=== PATIENT | female | born 1960 | race Caucasian/White ===

== ENCOUNTER 2024-05-29 11:59 | Emergency (ER) | payer OTHER, SELFPAY ==
[2024-05-29] VITALS (12 sets, daily range): BP systolic 144–168; BP diastolic 71–100; PULSE 60–76; TEMP 36.8; O2SAT 94–100; BMI 20.2
--- NOTE | 2024-05-29 12:07 | ECG_ITS ---
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
--- NOTE | 2024-05-29 12:07 | XR_ITS ---
[address] [address] Patient Name: ARA PEREZ MRN: [id number] date: 1960 Sex: F Assigned Patient Location: ER Current Patient Location: ED.MAIN Accession/Order Number: [id number] Exam Date: 05/29/2024 12:37 Report Date: 05/29/2024 12:55 At the request of: OLIVE MCKEON Procedure: XR chest 1V EXAMINATION: XR chest 1V HISTORY: sob COMPARISON: No relevant comparison available. TECHNIQUE: AP portable FINDINGS: LUNGS: No significant pulmonary parenchymal abnormalities. VASCULATURE: No increased pulmonary vasculature. PLEURA: No pneumothorax, effusion, or pleural thickening. CARDIAC: No cardiomegaly or cardiac silhouette abnormality. MEDIASTINUM: No visible mass or adenopathy. BONES: No fracture or visible bone lesion. Suspected L1 kyphoplasty OTHER: Negative. XR/XR chest 1V IMPRESSION: No acute cardiopulmonary process Electronically authenticated by: LYNNETTE DE LA CRUZ Date: 05/29/2024 12:55
[2024-05-29] MEDS: IPRATROPIUM/ALBUTEROL SULFATE 3 ML AMPUL.NEB IH (12:16)
[2024-05-29 12:22] LABS: Basophils Absolute Auto 0.1 10^3/uL (0.0-0.1); Basophils Percent Auto 1.2 % (0.2-2.0); Eosinophils Absolute Auto 0.2 10^3/uL (0.0-0.7); Eosinophils Percent Auto 4.8 % (0.9-7.0); Hemoglobin 14.2 g/dL (12.0-16.0); Immature Granulocytes Abs Auto 0.01 10^3/uL (0.00-0.03); Immature Granulocytes Pct Auto 0.2 % (0.0-0.5); Lymphocytes Absolute Auto 2.8 10^3/uL (1.2-3.8); Lymphocytes Percent Auto 56.4 % (20.5-60.0); Mean Corpuscular HGB Conc 35.5 g/dL (29.9-35.2); Mean Corpuscular Hemoglobin 31.3 pg (26.7-34.0); Mean Corpuscular Volume 88.3 fL (81.0-99.0); Mean Platelet Volume 9.8 fL (9.5-13.5); Monocytes Absolute Auto 0.3 10^3/uL (0.3-0.8); Monocytes Percent Auto 6.1 % (1.7-12.0); Neutrophils Absolute Auto 1.6 10^3/uL (1.4-6.5); Neutrophils Percent Auto 31.3 % (43.0-75.0); Platelet Count 244 10^3/uL (150-450); Red Blood Count 4.53 10^6/uL (4.20-5.40); Red Cell Distribution Width 12.8 % (11.0-15.0)
[2024-05-29 12:39] LABS: Alanine Aminotransferase 20 U/L (14-59); Albumin Globulin Ratio 1.3; Albumin Level 4.5 g/dL (3.4-5.0); Alkaline Phosphatase 91 U/L (46-116); Anion Gap 15.8; Aspartate Amino Transferase 15 U/L (15-37); BUN Creatinine Ratio 5.9; Bilirubin Total 0.6 mg/dL (0.2-1.0); Calcium 9.9 mg/dL (8.5-10.1); Chloride 99 mmol/L (98-107); Estimated GFR (African America >60 (>=60); Estimated GFR (Non-African Ame >60 (>=60); Globulin 3.5 g/dL; Glucose 103 mg/dL (74-106); Potassium 3.8 mmol/L (3.5-5.1); Sodium 134 mmol/L (136-145)
[2024-05-29 12:40] LABS: ABG PCO2 25.3 mmHg (35.0-45.0); PO2 ABG 76.2 mmHg (80.0-100.0); pH ABG 7.487 (7.350-7.450)
[2024-05-29 12:41] LABS: Allen Test POS (POSITIVE); Base Excess ABG -4.3 mmol/L (-2.0-2.0); HCO3 ABG 19.1 mmol/L (22.0-26.0); O2 Mode ROOM AIR; Oxygen Saturation ABG 96.6 %; Puncture Site R RADIAL
[2024-05-29 12:46] LABS: Troponin I High Sensitivity 5.9 pg/mL (4.0-51.3)
--- NOTE | 2024-05-29 14:00 | ED_ITS ---
HPI - SOB/Dyspnea General Chief Complaint: Shortness of Breath/Dyspnea Stated Complaint: SHORTNESS OF BREATH Time Seen by Provider: 05/29/24 12:06 Source: patient Mode of arrival: ambulance History of Present Illness HPI Narrative: Patient presents to ED complaining of shortness of breath. She was sent over from urgent care. She said since Monday she has had a cough and shortness of breath worse with exertion and worse with laying flat. The provider from urgent care called me and said she seemed like she was working to breathe although her oxygen saturation was 99% on room air. Upon arrival patient states that she just feels more short of breath than normal and she has been getting a little bit of chills and sweats and having a productive cough. No fever. No fever here. Vital signs stable and oxygen saturation 97%. Patient is a longtime smoker with no formal diagnosis of COPD. She says she has not been able to smoke in 4 days. She denies chest pain. She said it just feels tight with her breathing. She did receive albuterol and route and 125 mg Solu-Medrol IV. Related Data Previous Rx's ?Medication ?Instructions ?Recorded albuterol sulfate 90 mcg/actuation 1 inh inhalation Q6H PRN shortness 05/29/24 aerosol inhaler of breath or wheezing #8.5 grams methylprednisolone 4 mg tablets in 4 mg PO DAILY #21 ea 05/29/24 a dose pack (Medrol (Tito)) Allergies Allergy/AdvReac Type Severity Reaction Status Date / Time Penicillins Allergy Hives Verified 05/29/24 12:01 Review of Systems ROS Status of ROS 10 or more systems reviewed and unremark able except as noted in history and below Exam Narrative Exam Narrative: Time Seen: [] Vital Signs: [Per nurse's notes.] General: [Alert] Skin: [Warm, dry, no rash.] Head: [Normocephalic, atraumatic.] Neck: [Supple, trachea midline.] Eye: [Pupils are equal, round and reactive to light, extraocular movements are intact, normal conjunctiva.] Ears, nose, mouth and throat: oral mucosa moist. Cardiovascular: [Regular rate and rhythm, no murmur.] Respiratory: Diminished breath sounds bilateral bases with very mild expiratory wheezing from the right lung, respirations are Mildly-labored, breath sounds are equal.] Chest wall: [No tenderness, no deformity.] Gastrointestinal: [Soft, nontender, non distended, normal bowel sounds.] MSK: 5 out of 5 muscle strength x 4 extremities no calf pain or edema Lymphatics: [No lymphadenopathy.] Psychiatric: [Cooperative, appropriate mood & affect.] Neurological: [Alert and oriented to person, place, time, and situation, no focal neurological deficit observed.] Constitutional Vital Signs, click to edit/add: Last Vital Signs Temp 98.3 F 05/29/24 12:01 Pulse 69 05/29/24 13:31 Resp 19 05/29/24 13:31 BP 168/83 H 05/29/24 13:31 Pulse Ox 97 05/29/24 13:31 O2 Del Method Room Air 05/29/24 12:17 Course Vital Signs Vital signs: Vital Signs Temperature 98.3 F 05/29/24 12:01 Pulse Rate 67 05/29/24 12:01 Respiratory Rate 32 H 05/29/24 12:01 Blood Pressure 168/100 H 05/29/24 12:01 Pulse Oximetry 94 L 05/29/24 12:01 Oxygen Delivery Method Room Air 05/29/24 12:01 Temperature 98.3 F 05/29/24 12:01 Pulse Rate 69 05/29/24 13:31 Respiratory Rate 19 05/29/24 13:31 Blood Pressure 168/83 H 05/29/24 13:31 Pulse Oximetry 97 05/29/24 13:31 Oxygen Delivery Method Room Air 05/29/24 12:17 MDM - SOB/Dyspnea MDM Narrative Medical decision making narrative: Patient's labs are nonacute. ABG is relatively nonacute. Patient was hyperventilating slightly and anxious upon arrival. Her pH was slightly elevat ed. Patient's oxygen saturation remained above 95%. Chest x-ray clear. Patient denies any recent travel there is no leg pain or swelling. No pitting edema. Patient is stable for discharge home. Most likely an upper respiratory infection or bronchitis exacerbating a COPD. She is not formally diagnosed with COPD and I told her to call her doctor's office today for close follow-up and she may need pulmonary function testing and or a pulmonary Evaluation to further diagnose. Of course return to the emergency room if worsening shortness of breath or any further concerns occur. Patient comfortable care plan for home. D- dimer, troponin, BNP were all normal Differential Diagnosis Differential diagnosis: Likely acute exacerbation of chronic obstructive airways disease, congestive heart failure, community acquired pneumonia, asthma with exacerbation and pulmonary embolism Medical Records Attestation: I reviewed the patient's medical records. Lab Data Attestation: I reviewed the patient's lab results. Labs: Lab Results 05/29/24 05/29/24 Range/Units 12:09 12:28 WBC 5.0 (4.0-11.0) 10^3/uL RBC 4.53 (4.20-5.40) 10^6/uL Hgb 14.2 (12.0-16.0) g/dL Hct 40.0 (36.0-48.0) % MCV 88.3 (81.0-99.0) fL MCH 31.3 (26.7-34.0) pg MCHC 35.5 H (29.9-35.2) g/dL RDW 12.8 (11.0-15.0) % Plt Count 244 (150-450) 10^3/uL MPV 9.8 (9.5-13.5) fL Neut % (Auto) 31.3 L (43.0-75.0) % Lymph % (Auto) 56.4 (20.5-60.0) % Dillon % (Auto) 6.1 (1.7-12.0) % Eos % (Auto) 4.8 (0.9-7.0) % Baso % (Auto) 1.2 (0.2-2.0) % Neut # (Auto) 1.6 (1.4-6.5) 10^3/uL Lymph # (Auto) 2.8 (1.2-3.8) 10^3/uL Dillon # (Auto) 0.3 (0.3-0.8) 10^3/uL Eos # (Auto) 0.2 (0.0-0.7) 10^3/uL Baso # (Auto) 0.1 (0.0-0.1) 10^3/uL Abs Immat Gran (auto) 0.01 (0.00-0.03) 10^3/uL Imm/Tot Granulo (auto) 0.2 (0.0-0.5) % D-Dimer 0.20 (<=0.59) mg/L FEU Puncture Site R radial ABG pH 7.487 H (7.350-7.450) ABG pCO2 25.3 L (35.0-45.0) mmHg ABG pO2 76.2 L (80.0-100.0) mmHg ABG HCO3 19.1 L (22.0-26.0) mmol/L ABG O2 Saturation 96.6 % ABG Base Excess -4.3 L (-2.0-2.0) mmol/L Michele Test Pos (POSITIVE) Sodium 134 L (136-145) mmol/L Potassium 3.8 (3.5-5.1) mmol/L Chloride 99 (98-107) mmol/L Carbon Dioxide 23.0 (21.0-32.0) mmol/L Anion Gap 15.8 BUN 4.0 L (7.0-18.0) mg/dL Creatinine 0.68 (0.55-1.02) mg/dL Est GFR ( Amer) >60 (>=60) Est GFR (Non-Af Amer) >60 (>=60) BUN/Creatinine Ratio 5.9 Glucose 103 (74-106) mg/dL Calcium 9.9 (8.5-10.1) mg/dL Total Bilirubin 0.6 (0.2-1.0) mg/dL AST 15 (15-37) U/L ALT 20 (14-59) U/L Alkaline Phosphatase 91 (46-116) U/L Troponin I High Sens 5.9 (4.0-51.3) pg/mL NT-Pro-B Natriuret Pep 111.0 (<=900.0) pg/mL Total Protein 8.0 (6.4-8.2) g/dL Albumin 4.5 (3.4-5.0) g/dL Globulin 3.5 g/dL Albumin/Globulin Ratio 1.3 ABG Data Attestation: I have reviewed the pertinent ABG results. Interpretation: Mild respiratory alkalosis Imaging Data Chest x-ray: Radiologist's impression: ITS Impressions Chest X-Ray 05/29/24 12:07 IMPRESSION: No acute cardiopulmonary process Electronically authenticated by: LYNNETTE DE LA CRUZ Date: 05/29/2024 12:55 ECG Data Attestation: I personally reviewed and interpreted this ECG as follows: Interpretation: EKG INTERPRETATION Time: []1207 Rate: []61 Rhythm: _ []Normal sinus rhythm ST segments: _ []No acute ST elevation or depression T waves: _ [] Ectopy: _ [] P wave/NH interval: _ [] QRS interval: _ [] QT interval: _ [] Comparison: _ [] Comparison EKG date: [] Performed by: [self] Core Measures AMI core measures followed: Yes Smoking Cessation Time spent discussing smoking cessation with patient: 3 to 10 minutes Patient Acknowledges Need for Cessation: Yes Discharge Plan Discharge Stand Alone Forms: Portal Instructions Chief Complaint: Shortness of Breath/Dyspnea Clinical Impression: Bronchitis Patient Disposition: Home, Self-Care Time of Disposition Decision: 13:31 Mode of Transportation: Private Vehicle Prescriptions / Home Meds: New methylprednisolone [Medrol (Tito)] 4 mg tablets,dose pack 4 mg PO DAILY Qty: 21 0RF Rx Instructions: medrold dosepak disp one pack use as directed! Thanks! albuterol sulfate 90 mcg/actuation HFA aerosol inhaler 1 inh inhalation Q6H PRN (Reason: shortness of breath or wheezing) Qty: 8.5 0RF Print Language: Chinese Instructions: Acute Bronchitis (ED) Referrals: Varinder Estrella DO [Primary Care Provider] - 1 week Discharge Date/Time: 05/29/24 13:40
== END 2024-05-29 13:40 | disposition home or self-care (01) ==
PROVIDERS: Emergency Provider Emergency Medicine; PCP Family Medicine
DX: J40 Bronchitis, not specified as acute or chronic (principal); F17.200 Nicotine dependence, unspecified, uncomplicated
CPT/HCPCS: 36415; 36600; 71045; 80053; 82805; 83880; 84484; 85025; 85378; 87811; 93005; 94640; 99285